=== PATIENT | female | born 1965 | race Two or more races ===

== ENCOUNTER 2019-02-24 06:15 | Day surgery (SDC) | payer OTHER ==
[~2019-02-24 06:15] MED LIST: COZAAR100 MG PO; LASIX PO; METROPLOL PO; SYNTHROID50 MCG PO
== END 2019-02-24 14:05 | disposition home or self-care (01) ==
LOC: CIR.AMB 06:15
DX: N85.01 Benign endometrial hyperplasia (principal)

== ENCOUNTER 2024-11-25 15:21 | Outpatient (CLI) | payer OTHER | END 2024-11-25 15:29 | disposition home or self-care (01) | LOC: RAD 15:21 | PROVIDERS: ATTEND Obstetrics & Gynecology | DX: I10 Essential (primary) hypertension (principal); Z01.818 Encounter for other preprocedural examination; R05.9 Cough, unspecified ==

== ENCOUNTER 2024-12-15 06:10 | Day surgery (SDC) | payer OTHER ==
[~2024-12-15] VITALS: Ht 157.5 cm; Wt 97.5 kg
[~2024-12-15 06:10] MED LIST changes: +AMLODIPINE-OLM1 EACH; +OZEMPIC1 MG/0.71; +ROSUVASTATIN CA10 MG; +TOPROL XL50 M1
[2024-12-15] MEDS ORDERED: POVIDONE-IODINE 118 ML BOTT TOP ONE (10:00)
[2024-12-15] MEDS ORDERED: MORPHINE SULFATE 4 MG/ML VIAL IV PRN (10:45)
[2024-12-15] MEDS ORDERED: PROMETHAZINE HCL 50 MG/ML AMPUL IM ONE (10:45)
== END 2024-12-15 14:50 | disposition home or self-care (01) ==
LOC: CIR.AMB 06:10
PROVIDERS: ATTEND Obstetrics & Gynecology
DX: N84.0 Polyp of corpus uteri (principal); Z88.2 Allergy status to sulfonamides